=== PATIENT | male | born 1990 | race Caucasian/White ===

== ENCOUNTER 2016-06-03 11:02 | Inpatient (IN) | payer OTHER ==
[~2016-06-03] VITALS: Ht 182.9 cm; Wt 107.4 kg
[~2016-06-03 11:02] MED LIST: ARIP1TAB13 PO; ARIP400I IM
[2016-06-03 11:05] VITALS: BP 130/85; PULSE 88; RESP 15; TEMP 97.7; O2SAT 98
[2016-06-03 11:20] VITALS: BP 121/71; PULSE 86; RESP 16; O2SAT 97
[2016-06-03] MEDS ORDERED: SERO25TA PO (11:26)
[2016-06-03] MEDS ORDERED: THIO5CAP PO (11:26)
[2016-06-03] MEDS ORDERED: LORA-474 PO (11:32)
--- NOTE | 2016-06-03 11:34 | PD ---
HPI Chief Complaint: Psychiatric Symptoms Time Seen by Provider: 11:34 Travel History International Travel<30 days: No Contact w/Intl Traveler<30days: No Traveled to known affect area: No History of Present Illness HPI 26-year-old male presents to the emergency department for complaints of right ankle injury. He states that he fractured his ankle in March 2015. He states he never followed up on it and he "needs it reset today". However, he states that he has been feeling paranoid and anxious. Patient does have history of bipolar disorder and schizophrenia. He states he is taking his medications as prescribed, but is getting more paranoid. The patient does appear paranoid on exam. Apparently, he has been getting more agitated at home and on the verge of being violent. The patient denies any thoughts of hurting himself or anybody else. Patient states he was released one week ago from [facility]. He states they "ez" helped me, but I have been worsening. Patient denies any other complaints at this time. Patient also states he has not slept in 72 hours. PFSH Past Medical History Bipolar Disorder: Yes Anxiety: Yes (presented to ED with anxiety and chest pain) Depression: No Cancer: No Cardiovascular Problems: No Cerebrovascular Accident: No Diabetes: No Diminished Hearing: No Genitourinary: No Headaches: No Musculoskeletal: No Psychiatric: No Reproductive: No Respiratory: No Seizures: No Past Surgical History Abdominal Surgery: No Cardiac Surgery: No Ear Surgery: No Endocrine Surgery: No Eye Surgery: No Genitourinary Surgery: No Gynecologic Surgery: No Oral Surgery: No Thoracic Surgery: No Tonsillectomy: Yes Other Surgery: Yes (tonsillectomy) Social History Alcohol Use: Yes (4 DRINKS PER MONTH) Tobacco Use: Yes (1-2 PKS PER DAY) Substance Use: Yes (PT IS CURRENTLY NOT ON AN ILLICIT SUBSTANCE) Allergies-Medications (Allergen,Severity, Reaction): Coded Allergies: Amoxicillin (Verified Allergy, Severe, 09/30/07) Keflex (Verified Allergy, Intermediate, ITCHING, 06/03/16) Reported Meds & Prescriptions Reported Meds & Active Scripts Active Reported Ativan (Lorazepam) 1 Mg Tab 1 Mg PO BID PRN Seroquel (Quetiapine Fumarate) 25 Mg Tab 25 Mg PO BID Thiothixene 5 Mg Cap 5 Mg PO BID Review of Systems Except as stated in HPI: all other systems reviewed are Neg Physical Exam Narrative GENERAL: Well-developed well-nourished male patient, ambulatory. Afebrile. SKIN: Warm and dry. HEAD: Normocephalic. Atraumatic. ENT: Mucosa pink and moist. No erythema or exudates. No uvular edema. No uvular , palatal, or tonsillar deviation. Airway patent. Nasal turbinates appear normal without nasal blood, purulent drainage or septal hematoma. Bilateral tympanic membranes are clear without erythema or perforation. EYES: No scleral icterus. No injection or drainage. NECK: Supple, trachea midline. No JVD or lymphadenopathy. CARDIOVASCULAR: Regular rate and rhythm without murmurs, gallops, or rubs. RESPIRATORY: Breath sounds equal bilaterally. No accessory muscle use. GASTROINTESTINAL: Abdomen soft, non-tender, nondistended. Lungs sounds are clear to auscultation. MUSCULOSKELETAL: No cyanosis, or edema. Patient has pain on right lateral, anterior, medial ankle. No obvious deformity. PSYCHIATRIC: Patient appears paranoid on my questioning. No active hallucinations. Data Data Last Documented VS Vital Signs Date Time Temp Pulse Resp B/P Pulse Ox O2 Delivery O2 Flow Rate FiO2 06/03/16 11:20 86 16 121/71 97 Room Air 06/03/16 11:05 97.7 Orders Ankle, Complete ([id number]) (06/03/16 ) Complete Blood Count With Diff (06/03/16 11:32) Comprehensive Metabolic Panel (06/03/16 11:32) Drug Screen, Random Urine (06/03/16 11:32) Alcohol (Ethanol) (06/03/16 11:32) Psych Screen (06/03/16 11:32) Labs Laboratory Tests Test 06/03/16 11:55 White Blood Count 8.5 TH/MM3 Red Blood Count 4.86 MIL/MM3 Hemoglobin 14.8 GM/DL Hematocrit 43.7 % Mean Corpuscular Volume 90.0 FL Mean Corpuscular Hemoglobin 30.5 PG Mean Corpuscular Hemoglobin 33.9 % Concent Red Cell Distribution Width 13.1 % Platelet Count 169 TH/MM3 Mean Platelet Volume 9.2 FL Neutrophils (%) (Auto) 65.4 % Lymphocytes (%) (Auto) 19.7 % Monocytes (%) (Auto) 13.3 % Eosinophils (%) (Auto) 1.2 % Basophils (%) (Auto) 0.4 % Neutrophils # (Auto) 5.6 TH/MM3 Lymphocytes # (Auto) 1.7 TH/MM3 Monocytes # (Auto) 1.1 TH/MM3 Eosinophils # (Auto) 0.1 TH/MM3 Basophils # (Auto) 0.0 TH/MM3 CBC Comment DIFF FINAL Differential Comment Sodium Level 142 MEQ/L Potassium Level 3.7 MEQ/L Chloride Level 106 MEQ/L Carbon Dioxide Level 27.9 MEQ/L Anion Gap 8 MEQ/L Blood Urea Nitrogen 11 MG/DL Creatinine 0.76 MG/DL Estimat Glomerular Filtration 122 ML/MIN Rate Random Glucose 90 MG/DL Calcium Level 8.8 MG/DL Total Bilirubin 0.5 MG/DL Aspartate Amino Transf 9 U/L (AST/SGOT) Alanine Aminotransferase 26 U/L (ALT/SGPT) Alkaline Phosphatase 75 U/L Total Protein 7.2 GM/DL Albumin 3.7 GM/DL Urine Opiates Screen NEG Urine Barbiturates Screen NEG Urine Amphetamines Screen NEG Urine Benzodiazepines Screen NEG Urine Cocaine Screen NEG Urine Cannabinoids Screen NEG Ethyl Alcohol Level LESS THAN 3 MG/DL MDM Medical Decision Making Medical Screen Exam Complete: Yes Emergency Medical Condition: Yes Medical Record Reviewed: Yes Interpretation(s) x-ray right ankle - CONCLUSION: Lateral soft tissue swelling no acute fracture. Differential Diagnosis Bipolar disorder versus schizophrenia versus acute psychosis versus right ankle fracture Narrative Course 26-year-old male presents to the emergency department for evaluation of right ankle pain since March when he states he fractured his ankle. He states he never followed up. He also has been feeling more paranoid and anxious. Patient was released one week ago from [facility] and has a history of bipolar disorder and schizophrenia. X-ray of the right ankle is ordered and pending. CBC, CMP, urine drug screen, alcohol level are ordered and pending. Psych screen is ordered. CBC is unremarkable. CMP is unremarkable. UDS is negative. Alcohol level is less than 3. X-ray of the right ankle shows lateral soft tissue swelling no acute fracture. Patient is medically cleared for psychiatric screening and disposition. Mental health screening discussed with the patient. Psychiatric screen ordered. Diagnosis Primary Impression: Bipolar disorder, current episode manic without psychotic features, moderate Additional Instructions: Patient is medically cleared for psychiatric screening and disposition. Condition: Stable Rossana Kovacs RENNY Jun 03, 2016 11:34
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
[2016-06-03 12:12] LABS: AUTOMATED NEUTROPHIL # 5.6 TH/MM3 (1.8-7.7); BASOPHIL % 0.4 % (0.0-2.0); EOSINOPHIL # 0.1 TH/MM3 (0-0.4); EOSINOPHIL % 1.2 % (0.0-4.0); HEMATOCRIT 43.7 % (39.0-51.0); HEMO FLAGS DIFF FINAL; LYMPH % 19.7 % (9.0-44.0); LYMPHOCYTE # 1.7 TH/MM3 (1.0-4.8); MEAN CORPUSCULAR HEMOGLOBIN 30.5 PG (27.0-34.0); MEAN CORPUSCULAR HGB CONC 33.9 % (32.0-36.0); MONO % 13.3 % (0.0-8.0); NEUT % 65.4 % (16.0-70.0); PLATELET COUNT 169 TH/MM3 (150-450); RED BLOOD COUNT 4.86 MIL/MM3 (4.50-5.90); RED CELL DISTRIBUTION WIDTH 13.1 % (11.6-17.2); WHITE BLOOD COUNT 8.5 TH/MM3 (4.0-11.0)
[2016-06-03 12:16] LABS: AMPHETAMINE, URINE NEG (NEG); BARBITURATES, URINE NEG (NEG); COCAINE, URINE NEG (NEG)
[2016-06-03 12:25] LABS: ALT (GPT) 26 U/L (12-78); ANION GAP 8 MEQ/L (5-15); AST (GOT) 9 U/L (15-37); BICARBONATE 27.9 MEQ/L (21.0-32.0); BLOOD UREA NITROGEN 11 MG/DL (7-18); CHLORIDE 106 MEQ/L (98-107); GLOMERULAR FILTRATION RATE 122 ML/MIN (>89); POTASSIUM 3.7 MEQ/L (3.5-5.1); SODIUM (NA) 142 MEQ/L (136-145)
[2016-06-03 12:27] LABS: ALKALINE PHOSPHATASE 75 U/L (45-117); TOTAL BILIRUBIN ADULT 0.5 MG/DL (0.2-1.0)
[2016-06-03 15:00] VITALS: BP 127/79; PULSE 76; RESP 18; TEMP 98.4; O2SAT 99
[2016-06-03] MEDS ORDERED: MAGNESIUM HYDROXIDE SUSP 30 ML CUP PO PRN (17:15)
[2016-06-03] MEDS ORDERED: ALUMINUM/MAGNESIUM/SIMETH 30 ML CUP PO PRN (17:15)
[2016-06-03 18:31] VITALS: BP 138/74; PULSE 83; RESP 18; TEMP 98; O2SAT 97
[2016-06-03] MEDS: THIOTHIXENE 5 MG CAP PO SCH (21:00)
[2016-06-03] MEDS: QUEtiapine FUMARATE 25 MG TAB PO SCH (21:49)
[2016-06-04 06:38] VITALS: BP 108/55; PULSE 88; RESP 17; TEMP 97.2
[2016-06-04] MEDS: THIOTHIXENE 5 MG CAP PO SCH ×2 (09:50→21:51)
[2016-06-04] MEDS: QUEtiapine FUMARATE 25 MG TAB PO SCH (09:50)
[2016-06-04] MEDS: ACETAMINOPHEN 325 MG TAB PO PRN (09:52)
[2016-06-04 10:01] LABS: ANION GAP 8 MEQ/L (5-15); BICARBONATE 30.3 MEQ/L (21.0-32.0); BLOOD UREA NITROGEN 13 MG/DL (7-18); CHLORIDE 106 MEQ/L (98-107); GLOMERULAR FILTRATION RATE 98 ML/MIN (>89); HDL CHOLESTEROL 36.1 MG/DL (40.0-60.0); LDL CHOLESTEROL 67 MG/DL (0-99); POTASSIUM 4.2 MEQ/L (3.5-5.1); SODIUM (NA) 144 MEQ/L (136-145)
[2016-06-04 11:42] LABS: HEMOGLOBIN A1b 0.8 %; HEMOGLOBIN Ao 87.2 %; HEMOGLOBIN F 0.9 %; HEMOGLOBIN LA1C 1.8 %; HEMOGLOBIN P3 3.3 %
[2016-06-04] MEDS ORDERED: LORazepam 1 MG TAB PO PRN (12:45)
[2016-06-04] MEDS ORDERED: LORazepam 2 MG TAB PO PRN (12:45)
[2016-06-04] MEDS ORDERED: FLUMAZENIL 0.5 MG/5 ML VIAL IV PUSH PRN (12:45)
[2016-06-04] MEDS ORDERED: LORazepam 2 MG/ML VIAL IM PRN ×4 (12:45)
[2016-06-04] MEDS ORDERED: BENZTROPINE MESYLATE 2 MG/2 ML VIAL IM PRN (12:45)
[2016-06-04] MEDS ORDERED: BENZTROPINE MESYLATE 1 MG TAB PO PRN (12:45)
--- NOTE | 2016-06-04 13:12 | PD.ORT.PN ---
Subjective Subjective Remarks Xray history reviewed. Objective Vitals Vital Signs Date Time Temp Pulse Resp B/P Pulse Ox O2 Delivery O2 Flow Rate FiO2 06/04/16 06:38 97.2 88 17 108/55 06/03/16 18:31 98.0 83 18 138/74 97 06/03/16 15:00 98.4 76 18 127/79 99 Room Air Result Diagram: 06/03/16 1155 06/04/[address] scan of foot in April previously showed a well aligned but intra- articular talus fracture New ankle xrays show healing at prior fracture site Assessment & Plan Problem List: (1) Talar fracture Assessment and Plan Chronic right foot pain associated with intra-articular talus fracture which appears to be healing. Conservative care. Modify activities if needed. Patient can follow up as outpatient with Dr. Smith. I will sign off. Robin Smith MD Jun 04, 2016 13:12
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
[2016-06-04 20:28] VITALS: BP 109/70; PULSE 75; RESP 18; TEMP 98.9; O2SAT 98
[2016-06-04] MEDS: MELATONIN 5 MG TAB PO SCH (21:00)
[2016-06-04] MEDS: LITHIUM CARBONATE 300 MG TAB PO SCH (21:52)
[2016-06-05] MEDS: hydrOXYzine HCL 50 MG TAB PO PRN (01:13)
[2016-06-05 06:16] VITALS: BP 148/81; PULSE 83; RESP 18; TEMP 97.7; O2SAT 99
[2016-06-05] MEDS: THIOTHIXENE 5 MG CAP PO SCH ×2 (08:40→20:20)
[2016-06-05] MEDS: LITHIUM CARBONATE 300 MG TAB PO SCH ×2 (08:40→20:20)
--- NOTE | 2016-06-05 10:49 | HHI.PYPN ---
Subjective Remarks Patient seen and examined with counselor. Chart reviewed. Case discussed with nursing staff. Patient has been medication compliant. On my examination today , the patient reports that he slept well with the addition of melatonin. His mood is described as "mellow." He denies any suicidal or homicidal ideation. Feels like current regimen is working well and denies side effects from medications. He would like to remain for some additional stabilization. We discuss adjusting his lithium upward and tapering his Navane during the remainder of the hospital stay and he is in agreement with this plan. Review of Systems Other No somatic complaints Objective Alert: Yes [place]: Person (O x 3) Mood: Calm Affect: Blunted Memory Intact: Comment (Intact) Hallucinations: Other (No AVH) Delusions: No Delusion Type: Other (No delusions) Suicidal: Ideation (Denies SI) Homicidal: Ideation (Denies HI) Insight/Judgement Fair Remarks No motoric abnormalities noted. Thought processes fairly linear. Speech within normal limits for rate, tone and volume. No evidence of withdrawal noted. Labs Labs reviewed. TSH within normal limits. Vitals/IOs Vital Signs Date Time Temp Pulse Resp B/P Pulse Ox O2 Delivery O2 Flow Rate FiO2 06/05/16 06:16 97.7 83 18 148/81 99 06/03/16 15:00 Room Air Assessment & Plan Problem List: (1) Bipolar disorder, current episode depressed, moderate ICD Code: F31.32 Assessment & Plan Continue lithium and Navane and melatonin as ordered. Plan to check an interval lithium level tomorrow. So long as not elevated, and I do not expect it will be, we will plan to titrate lithium at that time. Continue other medications and care as ordered. Orthopedic surgery consultation noted and appreciated. Justification for Cont. Inpt. Medication adjustments. Discharge Planning Pending psychiatric stabilization Request HC Surrog/Guard Advoc?: No Cash Osei MD Jun 05, 2016 10:49
[2016-06-05] MEDS: ACETAMINOPHEN 325 MG TAB PO PRN (13:42)
[2016-06-05 14:00] VITALS: BP 134/71; PULSE 67; RESP 18; TEMP 98.2
[2016-06-05] MEDS: MELATONIN 5 MG TAB PO SCH (20:20)
[2016-06-06 05:30] VITALS: BP 125/66; PULSE 62; RESP 18; TEMP 97.4; O2SAT 99
[2016-06-06] MEDS: REMOVE OLD NICODERM (NICOTINE) PATCH TD SCH (09:00)
--- NOTE | 2016-06-06 10:06 | HHI.PYPN ---
Subjective Remarks Patient seen and examined with counselor and nursing staff. Chart reviewed. Case discussed in treatment team. On my examination today, the patient seems somewhat internally preoccupied. He smiles to himself, somewhat inappropriately. He says "before I was really depressed, now I feel better." No SI or HI voiced. No hypomanic or manic symptoms noted. Patient says that he has a somewhat metallic or salty taste from the lithium but this is improved when he takes it with food. Otherwise no side effects from medications. Patient expresses appreciation for the care he is receiving here. Review of Systems Other No physical complaints today. Objective Alert: Yes [place]: Person (once again O x 3) Mood: Calm Affect: Blunted Memory Intact: Comment (Intact) Hallucinations: Other (denies but appears somewhat internally preoccupied) Delusions: No Delusion Type: Other (No delusions) Suicidal: Ideation (no SI) Homicidal: Ideation (no HI) Insight/Judgement Fair Remarks No motoric abnormalities noted Labs Test 06/06/16 06:01 [place] Level 0.2 MEQ/L Labs reviewed. [place] level subtherapeutic. Vitals/IOs Vital Signs Date Time Temp Pulse Resp B/P Pulse Ox O2 Delivery O2 Flow Rate FiO2 06/06/16 05:30 97.4 62 18 125/66 99 06/03/16 15:00 Room Air Assessment & Plan Problem List: (1) Bipolar disorder, current episode depressed, moderate ICD Code: F31.32 Assessment & Plan Patient appears to be responding somewhat to lithium therapy. Level was low and patient complains of a salty taste when he takes it without food. I will therefore change the formulation to lithium SR, dosed twice daily with meals, and increase the dose to 450 mg twice a day. Plan to check a level later this week. Continue other medications and care as ordered. Justification for Cont. Inpt. Risk for decompensation. Possibly some impairments in reality testing, unclear. Discharge Planning Pending psychiatric stabilization Request HC Surrog/Guard Advoc?: No Cash Osei MD Jun 06, 2016 10:06
[2016-06-06] MEDS: THIOTHIXENE 5 MG CAP PO SCH ×2 (10:27→20:33)
[2016-06-06] MEDS: NICOTINE 21 MG/24 HR PATCH TD SCH (10:28)
[2016-06-06] MEDS: LITHIUM CARBONATE 450 MG CONTROLLED RELEASE TAB PO SCH (17:51)
[2016-06-06] MEDS: MELATONIN 5 MG TAB PO SCH (20:33)
[2016-06-06 21:00] VITALS: BP 139/83; PULSE 80; RESP 19; TEMP 98.6; O2SAT 96
[2016-06-07 06:00] VITALS: BP 112/59; PULSE 68; RESP 18; TEMP 97.6; O2SAT 98
[2016-06-07] MEDS: THIOTHIXENE 5 MG CAP PO SCH ×2 (08:48→22:12)
[2016-06-07] MEDS: LITHIUM CARBONATE 450 MG CONTROLLED RELEASE TAB PO SCH ×2 (08:48→17:33)
[2016-06-07] MEDS: NICOTINE 21 MG/24 HR PATCH TD SCH (08:49)
[2016-06-07] MEDS: REMOVE OLD NICODERM (NICOTINE) PATCH TD SCH (08:51)
[2016-06-07] MEDS ORDERED: ACETAMINOPHEN 500 MG CPLT PO ONE (10:30)
--- NOTE | 2016-06-07 10:30 | HHI.PYPN ---
Subjective Remarks Patient seen and examined with counselor. Chart reviewed. Case discussed with nursing staff. On my examination today, patient seems more lucid and less internally preoccupied. His speech is logical and linear. His mood is described as mellow. Denies side effects from medications. Hopeful for Sunday discharge, and we discussed modifications to the treatment plan to accommodate this. Review of Systems Other no somatic complaints today Objective Alert: Yes [place]: Person (O x 3) Mood: Calm Affect: Other (more full and reactive) Memory Intact: Comment (Intact) Hallucinations: Other (no AVH) Delusions: No Delusion Type: Other (No delusions) Suicidal: Ideation (no SI) Homicidal: Ideation (no HI) Insight/Judgement Fair Remarks Thought process linear Labs Labs reviewed Vitals/IOs Vital Signs Date Time Temp Pulse Resp B/P Pulse Ox O2 Delivery O2 Flow Rate FiO2 06/07/16 06:00 97.6 68 18 112/59 98 06/03/16 15:00 Room Air Assessment & Plan Problem List: (1) Bipolar disorder, current episode depressed, moderate ICD Code: F31.32 Assessment & Plan Continue lithium as ordered for now. We will plan to check a lithium level tomorrow, which will likely under-represent patient's true lithium level. I have discussed with the patient that at that point we could titrate his lithium , so long as his level is not high tomorrow, and plan to obtain a lithium level after discharge on an outpatient basis. Discontinue CIWA; no evidence of withdrawal. Continue other medications and care as ordered. Justification for Cont. Inpt. Risk for decompensation pending psychiatric stabilization Discharge Planning Pending psychiatric stabilization Request HC Surrog/Guard Advoc?: No Cash Osei MD Jun 07, 2016 10:30
[2016-06-07] MEDS: hydrOXYzine HCL 50 MG TAB PO PRN (16:43)
[2016-06-07 20:06] VITALS: BP 135/76; PULSE 74; RESP 18; TEMP 98; O2SAT 99
[2016-06-07] MEDS: MELATONIN 5 MG TAB PO SCH (22:12)
[2016-06-08 05:55] VITALS: BP 106/59; PULSE 66; RESP 18; TEMP 97.9; O2SAT 97
[2016-06-08] MEDS: ACETAMINOPHEN 325 MG TAB PO PRN (06:09)
[2016-06-08 07:37] LABS: BICARBONATE 30.1 MEQ/L (21.0-32.0); POTASSIUM 4.1 MEQ/L (3.5-5.1)
[2016-06-08] MEDS: NICOTINE 21 MG/24 HR PATCH TD SCH (09:00)
[2016-06-08] MEDS: REMOVE OLD NICODERM (NICOTINE) PATCH TD SCH (09:00)
[2016-06-08] MEDS: LITHIUM CARBONATE 450 MG CONTROLLED RELEASE TAB PO SCH ×2 (10:10→18:31)
[2016-06-08] MEDS: THIOTHIXENE 5 MG CAP PO SCH ×2 (10:10→21:10)
--- NOTE | 2016-06-08 11:16 | HHI.PYPN ---
Subjective Remarks Patient seen and examined with counselor. Chart reviewed. Case discussed with nursing staff. No behavioral issues noted overnight. On my examination today, the patient feels improved. He says "I'm not fighting sleep anymore because I might . I was afraid I might perish." He denies any suicidal or homicidal ideation. Mood is more stable. Denies side effects from medications. Declines further medication adjustments at this time. Review of Systems Other No physical complaints today Objective Alert: Yes [place]: Person (O x 3) Mood: Calm Affect: Euthymic Memory Intact: Comment (Intact) Hallucinations: Other (no AVH) Delusions: No Delusion Type: Other (no evident delusional material) Suicidal: Ideation (no SI) Homicidal: Ideation (no HI) Insight/Judgement Fair Remarks No abnormal motor movements noted Labs Test 06/08/16 05:57 Sodium Level 140 MEQ/L Potassium Level 4.1 MEQ/L Chloride Level 105 MEQ/L Carbon Dioxide Level 30.1 MEQ/L Anion Gap 5 MEQ/L Blood Urea Nitrogen 12 MG/DL Creatinine 0.89 MG/DL Estimat Glomerular Filtration 102 ML/MIN Rate Random Glucose 83 MG/DL Calcium Level 8.6 MG/DL [place] Level 0.4 MEQ/L Labs reviewed. [place] level increasing towards therapeutic range and this likely underrepresents his true lithium level. Renal function remains intact. Vitals/IOs Vital Signs Date Time Temp Pulse Resp B/P Pulse Ox O2 Delivery O2 Flow Rate FiO2 06/08/16 05:55 97.9 66 18 106/59 97 Assessment & Plan Problem List: (1) Bipolar disorder, current episode depressed, moderate ICD Code: F31.32 Assessment & Plan Patient seems improved today. Continue current psychotropics as ordered. Continue other medications and care as ordered. Justification for Cont. Inpt. Monitor overnight. Disposition planning. Discharge Planning Anticipate discharge tomorrow Request HC Surrog/Guard Advoc?: No Cash Osei MD Jun 08, 2016 11:16
[2016-06-08] MEDS: hydrOXYzine HCL 50 MG TAB PO PRN (15:19)
[2016-06-08 18:52] VITALS: BP 135/85; PULSE 91; RESP 18; TEMP 97.7; O2SAT 99
[2016-06-08] MEDS: MELATONIN 5 MG TAB PO SCH (21:10)
[2016-06-09] MEDS: hydrOXYzine HCL 50 MG TAB PO PRN (00:22)
[2016-06-09 05:43] VITALS: BP 116/66; PULSE 70; RESP 17; TEMP 97.6; O2SAT 97
[2016-06-09] MEDS: REMOVE OLD NICODERM (NICOTINE) PATCH TD SCH (09:00)
[2016-06-09] MEDS: NICOTINE 21 MG/24 HR PATCH TD SCH (09:03)
[2016-06-09] MEDS: THIOTHIXENE 5 MG CAP PO SCH (09:04)
[2016-06-09] MEDS: LITHIUM CARBONATE 450 MG CONTROLLED RELEASE TAB PO SCH (09:04)
[2016-06-09] MEDS ORDERED: LITH450T PO (11:59)
[2016-06-09] MEDS ORDERED: MELA1TAB22 PO (11:59)
--- NOTE | 2016-06-09 12:00 | HHI.DS ---
Psychiatry Discharge Summary Inpatient Psychiatric care?: Yes Advance Directive: Yes Mental Health AdvanceDirective: No Health Care Proxy: No Admission Admission Date Jun 03, 2016 at 17:02 Admission Diagnosis: (1) Bipolar disorder, current episode depressed, moderate ICD Code: F31.32 Brief History Mr. Sunshine is a 26 year-old male with a history of bipolar disorder who presents on a voluntary basis to the ED initially with complaints of ankle pain. He also had some psychiatric complaints and was referred for psychiatric screening. The psychiatric nurse practitioner saw him yesterday, although I do not see her note yet within the system, and I discussed the case with her and we agreed upon admitting the patient to the inpatient psychiatric unit. The patient seen and examined. Case discussed with nurse on the inpatient psychiatric unit. On my examination today, the patient seems decidedly more in the depressed pole of his bipolar illness. He says "I skipped my Abilify Maintena injection because it hurt. I kept taking my medications. I kind of just lost my way again. I went to a crisis center. I did not get my ankle set like an idiot." In addition to some low mood, he endorses poor sleep and also some feelings of hopelessness. He does express some degree of optimism that we will be able to find a new combination of medications that will help him feel better. He denies any suicidal or homicidal ideation at this time. No hypomanic or manic symptoms. He denies any audiovisual hallucinations and I can elicit no delusional beliefs. Tobacco Use In Past 30 Days: 5 or More Cigarettes/Day Alcohol Use: 4 or More Times Per Week Hospital Course Patient was admitted to a locked, inpatient psychiatric unit. An orthopedic surgery consultation was obtained. Patient was seen and examined daily on the unit by psychiatry and also visited by counselor. Medications were adjusted. Patient tolerated medications well without side effects. Patient had improvement in presenting psychiatric symptomatology during the course of his hospital stay. No evidence of any suicidal or homicidal behavior. Patient remained in good behavioral control. On the day of discharge: Case discussed with nursing staff. Patient seen and examined with counselor. Patient reports that his mood is improved versus admission and he feels ready for discharge from the inpatient psychiatric unit today. He denies any suicidal or homicidal ideation. Denies any audiovisual hallucinations. No delusional material. Denies side effects from medications. I multimedia specialist that the patient is at low imminent risk of harm to self or others after weighing the acute, chronic, and protective factors. He has maximized benefit from this inpatient psychiatric hospital stay will be discharged today in stable condition with psychiatric follow-up as arranged by counselor. Patient is also to follow-up with primary care and orthopedic surgery. Patient reminded to return to the psychiatric emergency room for any concerning psychiatric symptoms as part of a general safety plan. Results Blood Pressure 116 / 66 Vital Signs Date Time Temp Pulse Resp B/P Pulse Ox O2 Delivery O2 Flow Rate FiO2 06/09/16 05:43 97.6 70 17 116/66 97 Laboratory Tests Test 06/08/16 05:57 [place] Level 0.4 MEQ/L (0.5-1.5) Laboratory Results Test 06/08/16 05:57 [place] Level 0.4 MEQ/L (0.5-1.5) Summary of Procedures None done Imaging Last Impressions Ankle X-Ray 06/03/16 0000 Signed Impressions: Service Date/Time: Friday, June 03, 2016 11:44 - CONCLUSION: Lateral soft tissue swelling no acute fracture. Jose Calles MD Pending results at discharge: No Medications # of Antipsychotic meds at D/C: 1 Approp Antipsych med options 1 - Minimum of three failed multiple trials of monotherapy. 2 - Documented plan to taper to monotherapy due to previous use of multiple meds OR cross-taper in progress at D/C. 3 - Documentation of augmentation of Clozapine. 4 - Justification other than those listed in allowable values 1-3, document here : Discharge Discharge Date: Jun 09, 2016 Discharge Diagnosis: (1) Bipolar disorder Diagnosis: Principal ICD Code: F31.9 GAF on discharge is 60 Mental Status Exam at Disch Patient is casually dressed. He is well groomed. He is awake and alert and oriented 3. No abnormal motor movements noted. Speech is within normal limits for rate, tone and volume. Mood is improved versus admission and affect is blunted. Thought process linear. No loosening of associations. No evident delusional material. Denies audiovisual hallucinations. Denies suicidal or homicidal ideation. Insight and judgment are fair. Pt Condition on Discharge: Stable Discharge Disposition: Discharge Home Discharge Instructions Diet Instructions: As Tolerated, No Restrictions Activities you can perform: Weight Bearing as [place] Scheduled Appointment: Domenic Marchman Act Appointment Date: Jun 20, 2016 Appointment Time: 8:00am New Orders: LITHIUM (LI) - 1 Week New Medications: [place] Carbonate ER ([place] Carbonate ER) 450 Mg Tab 450 MG PO BIDPC Mental Health Days 15 Ref 1 TAB Melatonin (Melatonin) 5 Mg Tab 5 MG PO HS Sleep Days 15 Ref 1 TAB Continued Medications: Thiothixene (Thiothixene) 5 Mg Cap 5 MG PO BID Schizophrenia #60 Ref 0 CAP Discontinued Medications: Lorazepam (Ativan) 1 Mg Tab 1 MG PO BID PRN ANXIETY AND/OR AGITATION Ref 0 TAB Quetiapine (Seroquel) 25 Mg Tab 25 MG PO BID #60 Ref 0 TAB Discharge Time <= 30 minutes Discharge/Advance Care Plan Health Problems: (1) Bipolar disorder, current episode depressed, moderate Goals to promote your health * To prevent worsening of your condition and complications * To maintain your health at the optimal level Directions to meet your goals Take your medications as prescribed Follow your dietary instruction Follow activity as directed Keep your appointments as scheduled Take your immunizations and boosters as scheduled If your symptoms worsen call your PCP, if no PCP go to Urgent Care Center or Emergency Room For 11/12 questions related to your inpatient stay or results of tests pending at discharge, please contact Dr. Cash Osei at Smoking is Dangerous to Your Health. Avoid second hand smoking Problem Qualifiers (1) Bipolar disorder: Qualified Code: F31.75 - Bipolar disorder, in partial remission, most recent episode depressed Cash Osei MD Jun 09, 2016 12:00
== END 2016-06-09 14:55 | disposition home or self-care (01) | DRG 885 ==
LOC: NEPE 11:02 → NEDA 17:02 → H270 17:55
PROVIDERS: ADMIT Psychiatry & Neurology Psychiatry; ATTEND Psychiatry & Neurology Psychiatry
DX: F31.32 Bipolar disorder, current episode depressed, moderate (principal); F20.9 Schizophrenia, unspecified; F17.210 Nicotine dependence, cigarettes, uncomplicated; Z88.1 Allergy status to other antibiotic agents; S92.191D Other fracture of right talus, subsequent encounter for fracture with routine healing
CPT/HCPCS: 73610; 80048; 80053; 80061; 80178; 80307; 80320; 83036; 84443; 85025; 99285